=== PATIENT | female | born 1970 | race Hispanic/Latino ===

== ENCOUNTER 2017-03-27 20:23 | Emergency (ER) | payer MEDICARE ==
[2017-03-27] MEDS ORDERED: DEXAMETHASONE SOD PHOSPHATE 10MG/ML 1ML VIAL ONE (20:47)
[2017-03-27] MEDS ORDERED: KETOROLAC TROMETHAMINE 30MG/ML ONE (20:47)
[2017-03-27] MEDS ORDERED: SODIUM CHLORIDE 0.9% 1000ML 1,000 ML IV ONE (20:47)
== END 2017-03-27 21:42 | disposition home or self-care (01) ==
LOC: EDH 20:23
DX: J01.10 Acute frontal sinusitis, unspecified (principal); I10 Essential (primary) hypertension; E78.5 Hyperlipidemia, unspecified; F32.9 Major depressive disorder, single episode, unspecified; G35 Multiple sclerosis; Z98.51 Tubal ligation status; Z98.890 Other specified postprocedural states
CPT/HCPCS: 96361; 96374; 96375; 99284; J1100; J1885; J7030

== ENCOUNTER → 2018-04-07 | Outpatient (CLI) | payer MEDICARE ==
[~2018-04-07] MED LIST: GADODIAMIDE 10 MMOL/20 ML ML IV ONE
== END | disposition home or self-care (01) ==
LOC: RAH 12:29
PROVIDERS: ATTEND Family Medicine
DX: R42 Dizziness and giddiness (principal)
CPT/HCPCS: 70551; A9579

== ENCOUNTER → 2018-06-29 | Outpatient (CLI) | payer MEDICARE | END | disposition home or self-care (01) | LOC: RAH 15:06 | PROVIDERS: ATTEND Family Medicine | DX: M54.2 Cervicalgia (principal) | CPT/HCPCS: 72040 ==

== ENCOUNTER 2018-09-24 22:33 | Emergency (ER) | payer MEDICARE ==
[2018-09-24] MEDS ORDERED: TETANUS/DIPHTHERIA TOXOID [ADULT] 0.5 ML VIAL IM ONE (23:28)
== END 2018-09-25 00:09 | disposition home or self-care (01) ==
LOC: EDH 22:33
DX: S60.410A Abrasion of right index finger, initial encounter (principal); E78.5 Hyperlipidemia, unspecified; I10 Essential (primary) hypertension; F32.9 Major depressive disorder, single episode, unspecified; W55.01XA Bitten by cat, initial encounter; Y93.89 Activity, other specified; Y92.89 Other specified places as the place of occurrence of the external cause; Y99.8 Other external cause status
CPT/HCPCS: 90471; 90714

== ENCOUNTER → 2018-10-23 | Outpatient (CLI) | payer MEDICARE ==
[~2018-10-23] MED LIST changes: -GADODIAMIDE 10 MMOL/20 ML ML IV ONE; +IOHEXOL-350 75 ML VIAL IV ONE
== END | disposition home or self-care (01) ==
LOC: RAH 08:41
PROVIDERS: ATTEND Family Medicine
DX: K76.0 Fatty (change of) liver, not elsewhere classified (principal); K63.89 Other specified diseases of intestine; M47.815 Spondylosis without myelopathy or radiculopathy, thoracolumbar region
CPT/HCPCS: 74178; Q9967

== ENCOUNTER 2021-12-08 19:23 | Emergency (ER) | payer OTHER, MEDICARE ==
[~2021-12-08] VITALS: Ht 165.1 cm; Wt 89.4 kg
[2021-12-08] MEDS ORDERED: 0.9%NACL 1000ML 1,000 ML IV ONE ×2 (20:00→20:30)
[2021-12-08] MEDS ORDERED: KETOROLAC 15MG/ML VIAL (15MG/ML) ONE (20:17)
[2021-12-08] MEDS ORDERED: ONDANSETRON 4MG INJ ONE (20:17)
[2021-12-08] MEDS ORDERED: FAMOTIDINE 20MG VIAL IV ONE ×2 (20:18→20:30)
[2021-12-08] MEDS ORDERED: ACETAMINOPHEN 500 MG TABLET ONE (20:18)
[2021-12-08] MEDS ORDERED: ACETAMINOPHEN 500 MG TABLET PO ONE (20:30)
[2021-12-08] MEDS ORDERED: KETOROLAC 15MG/ML VIAL (15MG/ML) IV ONE (20:30)
[2021-12-08] MEDS ORDERED: ONDANSETRON 4MG INJ IVP ONE (20:30)
[2021-12-08 20:38] LABS: BASOPHILS % (AUTO) 0.3 % (0.0-5.0); EOSINOPHILS % (AUTO) 1.6 % (0.0-8.0); HEMATOCRIT 41.7 % (36-48); LYMPHOCYTES % (AUTO) 6.9 % (21.0-51.0); MEAN CORPUSCULAR HEMOGLOBIN 30.6 pg (27.0-33.0); MEAN CORPUSCULAR HGB CONC 34.3 g/dL (32.0-36.0); MEAN CORPUSCULAR VOLUME 89.1 fL (79-99); MONOCYTES % (AUTO) 5.3 % (3.0-13.0); NEUTROPHILS % (AUTO) 85.6 % (40.0-77.0); PLATELET COUNT (AUTO) 161 K/uL (130-400); RED BLOOD CELL COUNT(AUTO) 4.68 MIL/uL (4.00-5.50); RED CELL DISTRIBUTION WIDTH 12.6 % (11.0-15.5); WHITE BLOOD COUNT (AUTO) 9.8 K/uL (4.8-10.8)
[2021-12-08 20:44] LABS: APPEARANCE,URINE CLEAR (CLEAR); BILIRUBIN,URINE NEGATIVE (NEGATIVE); COLOR,URINE YELLOW (YELLOW); GLUCOSE, URINE (UA) NEGATIVE (NEGATIVE); KETONES,URINE NEGATIVE (NEGATIVE); LEUKOCYTE ESTERASE ,URINE NEGATIVE Leu/uL (NEGATIVE); NITRATE,URINE NEGATIVE (NEGATIVE); PROTEIN,URINE 30 mg/dL (NEGATIVE)
[2021-12-08 20:46] LABS: HCG,QUALITATIVE URINE NEGATIVE (NEGATIVE)
[2021-12-08 20:49] LABS: CARBON DIOXIDE 29 mmol/L (21-32); CHLORIDE 99 mmol/L (101-111); CREATININE 0.9 mg/dL (0.5-1.5); GLOMERULAR FILTR. RATE CALC 71 mL/min (>60); GLUCOSE,RANDOM 128 mg/dL (70-105); POTASSIUM 3.4 mmol/L (3.5-5.1); SODIUM SERUM 133 mmol/L (136-145); UREA NITROGEN, BLOOD 10 mg/dL (7-18)
[2021-12-08 20:57] LABS: BACTERIA,URINE RARE /HPF (None Seen); MUCUS,URINE RARE LPF (None Seen); SQUAMOUS EPITHELIAL CELL,UR FEW /HPF (0-2); WBC,URINE 0-1 /HPF (0-1)
[2021-12-08 20:59] LABS: ALANINE AMINOTRANSFERASE 39 U/L (12-78); ALBUMIN 4.2 g/dL (3.5-5.0); ASPARTATE AMINOTRANSFERASE 21 U/L (10-37)
[2021-12-08 21:00] LABS: INFLUENZA TYPE A NEGATIVE FOR TYPE A (NEG); INFLUENZA TYPE B NEGATIVE FOR TYPE B (NEG)
[2021-12-08 21:00] LABS: LIPASE < 50 U/L (114-286)
[2021-12-08] MEDS ORDERED: IOHEXOL 350 MG/ML 100ML INFUS..BTL IV ONE (21:49)
[2021-12-08] MEDS ORDERED: IBUP-2070 PO (22:45)
[2021-12-08] MEDS ORDERED: BACI1CAP6 PO (22:45)
[2021-12-08] MEDS ORDERED: ACET-66 PO (22:45)
[2021-12-08] MEDS ORDERED: DICY20TA2 PO (22:45)
[2021-12-08] MEDS ORDERED: ONDA4TAB10 PO (22:45)
[2021-12-08 23:12] VITALS: BP 135/72
== END 2021-12-08 23:14 | disposition home or self-care (01) ==
LOC: EDH 19:23
DX: B34.9 Viral infection, unspecified (principal); Z20.822 Contact with and (suspected) exposure to COVID-19; R11.2 Nausea with vomiting, unspecified; F41.9 Anxiety disorder, unspecified; F32.A Depression, unspecified; I10 Essential (primary) hypertension; G35 Multiple sclerosis; Z98.890 Other specified postprocedural states
CPT/HCPCS: 99285; 74177; 96374; 96361; 71045; 96375; 87635; 80053; 83690; 85025; 87040 ×2; 87880; 87804 ×2; 83605; 81001; 81025; 36415; C9803; J3490; J7030; J2405; J1885; Q9967

== ENCOUNTER → 2022-01-28 | Outpatient (CLI) | payer OTHER, MEDICARE ==
[~2022-01-28] MED LIST changes: +ACET-66 PO; +BACI1CAP6 PO; +DICY20TA2 PO; +IBUP-2070 PO; -IOHEXOL-350 75 ML VIAL IV ONE; +ONDA4TAB10 PO
== END | disposition home or self-care (01) ==
LOC: RAH 09:06
PROVIDERS: ATTEND Family Medicine
DX: Z12.31 Encounter for screening mammogram for malignant neoplasm of breast (principal)
CPT/HCPCS: 77067

== ENCOUNTER → 2022-04-07 | Outpatient (CLI) | payer OTHER, MEDICARE | END | disposition home or self-care (01) | LOC: RAH 13:18 | PROVIDERS: ATTEND Family Medicine | DX: N60.01 Solitary cyst of right breast (principal); N60.41 Mammary duct ectasia of right breast | CPT/HCPCS: 76641; 77065 ==

== ENCOUNTER → 2023-09-16 | Outpatient (CLI) | payer OTHER, MEDICARE ==
[~2023-09-16] MED LIST changes: +IOHEXOL 350 MG/ML 100ML INFUS..BTL IV ONE; +ONDA-243 PO; -ONDA4TAB10 PO
== END | disposition home or self-care (01) ==
LOC: RAH 07:37
PROVIDERS: ATTEND Internal Medicine Gastroenterology
DX: R19.7 Diarrhea, unspecified (principal); Z80.0 Family history of malignant neoplasm of digestive organs
CPT/HCPCS: 74175; Q9967

== ENCOUNTER → 2024-11-22 | Outpatient (CLI) | payer OTHER, MEDICARE ==
[~2024-11-22] MED LIST changes: +GADOTERATE MEGLUMINE 10 MMOL/20 ML VIAL IV ONE; +IBUP-1492 PO; -IBUP-2070 PO; +IBUP-2077 PO; -IOHEXOL 350 MG/ML 100ML INFUS..BTL IV ONE; +METH4TAB3 PO
--- NOTE | 2024-11-23 12:35 | HMCIMG ---
EXAMINATION: MR Abdomen with intravenous contrast with MRCP CLINICAL HISTORY: Patient with family history of neoplasm of the digestive tract. TECHNIQUE: Multisequence, multiplanar magnetic resonance images of the abdomen with intravenous contrast. CONTRAST: Administered intravenously. COMPARISON: CT angiogram abdomen dated September 16, 2023. FINDINGS: LOWER THORAX: No pleural effusion. LIVER: The liver is enlarged measuring 19 cm in craniocaudal span. No focal hepatic lesion. GALLBLADDER AND BILE DUCTS: No gallstone. No biliary ductal dilatation. PANCREAS: Unremarkable. No ductal dilation. SPLEEN: Unremarkable. ADRENALS: Unremarkable. KIDNEYS: No hydronephrosis or renal mass. STOMACH AND BOWEL: Limited evaluation shows no acute process. LYMPH NODES: No lymphadenopathy. VASCULATURE: No abdominal aortic aneurysm. IMPRESSION: Evaluation of the solid organs is limited due to lack of intravenous contrast. Additionally, please note that this study does not exclude small or large bowel cancer. Hepatomegaly with liver measuring 19 cm. No acute intra-abdominal abnormality. /[place]
== END | disposition home or self-care (01) ==
LOC: RAH 07:27
PROVIDERS: ATTEND Internal Medicine Gastroenterology
DX: R16.0 Hepatomegaly, not elsewhere classified (principal); Z80.0 Family history of malignant neoplasm of digestive organs
CPT/HCPCS: 74183; A9575

== ENCOUNTER 2024-11-27 11:59 | Emergency (ER) | payer OTHER, MEDICARE ==
[~2024-11-27] VITALS: Ht 165.1 cm; Wt 88.0 kg
[~2024-11-27 11:59] MED LIST changes: -GADOTERATE MEGLUMINE 10 MMOL/20 ML VIAL IV ONE; -METH4TAB3 PO
--- NOTE | 2024-11-27 12:03 | NUR ---
B/P 174/86, KRANTHI MENDOZA AWARE
--- NOTE | 2024-11-27 12:05 | ERN ---
ED Note History of Present Illness Stated Complaint: COUGH Chief Complaint: Congestion Time Seen by MD: 12:00 Dictation: PATIENT IS A 54-YEAR-OLD FEMALE COMING IN TODAY WITH COMPLAINTS OF FLU-LIKE SYMPTOMS TO INCLUDE CLEAR RHINITIS MILD SORE THROAT BODY ACHES WITH NAUSEA VO MITING AND DIARRHEA ONSET WAS YESTERDAY. SHE STATES SHE HAS HAD CHILLS. NO LOSS OF TASTE OR SMELL NO COUGH. SHE DENIES BEING A DIABETIC. LAST ANTIPYRETICS OVER THIS MORNING IBUPROFEN CURRENT TEMPERATURE 99.8. Allergies: Coded Allergies: No Known Drug Allergies (Unverified Allergy, Unknown, 09/25/18) Home Meds Active Scripts Ibuprofen (Ibuprofen 800 mg Tab) 800 Mg Tab, 800 MG PO Q8H PRN for fever or pain, #30 TAB 0 Refills Prov:KRANTHI VÁSQUEZ NP 02/15/24 Bacillus Coagulans (Probiotic) 1 Each Capsule.dr, 1 EACH PO DAILY, #30 CAP Prov:[facility] 12/08/21 Dicyclomine HCl (Bentyl) 20 Mg Tab, 20 MG PO TID PRN for ABDOMINAL PAIN, #15 TAB Prov:[facility] 12/08/21 Ondansetron (Ondansetron Odt) 4 Mg Tab.rapdis, 4 MG PO TID, #15 TAB Prov:[facility] 12/08/21 Acetaminophen (Tylenol) 500 Mg Tab, 500 MG PO Q4PRN, #30 TAB Prov:[facility] 12/08/21 Ibuprofen (Ibuprofen) 600 Mg Tablet, 600 MG PO Q6H PRN for PAIN, #15 TAB Prov:[facility] 12/08/21 Past Medical History Past Medical History: High Cholesterol, Hypertension Additional Past Medical Hx: MS Surgical History: History: Not Applicable RN Note Reviewed/Agreed w/PFSH: Yes Review of System Dictation CONSTITUTIONAL: NEGATIVE EXCEPT FOR HPI FEVER CHILLS HEAD/FACE: NEGATIVE EXCEPT FOR HPI EENT: NEGATIVE EXCEPT FOR HPI CLEAR RHINITIS WITH SORE THROAT RESPIRATORY: NEGATIVE EXCEPT FOR HPI GASTROINTESTINAL/ABDOMINAL: NEGATIVE EXCEPT FOR HPI NAUSEA VOMITING DIARRHEA GENITOURINARY: NEGATIVE EXCEPT FOR HPI MUSCULOSKELETAL: NEGATIVE EXCEPT FOR HPI MALAISE INTEGUMENTARY: NEGATIVE EXCEPT FOR HPI NEUROLOGICAL/PSYCH: NEGATIVE EXCEPT FOR HPI HEMATOLOGIC/LYMPHATIC: NEGATIVE EXCEPT FOR HPI ALL SYSTEMS NEGATIVE, EXCEPT NOTED ABOVE. 13 POINT REVIEW OF SYSTEMS ASSESSED AND ALL NEGATIVE EXCEPT FOR ABOVE. Initial Vital Sign VS Vital Signs Date Time Temp Pulse Resp B/P (MAP) Pulse Ox O2 Delivery O2 Flow Rate FiO2 11/27/24 12:00 99.9 98 18 174/86 98 Room Air 11/27/24 16:36 0 21 Physical Exam Dictation VITAL SIGNS REVIEWED GENERAL APPEARANCE: ALERT, ORIENTED X 3, MILD ACUTE DISTRESS, WELL DEVELOPED, NOURISHED. HEAD AND FACE: NON-TRAUMATIC. EYES: PERRL, PINK CONJUNCTIVAS, EYELID NO TRAUMA, ANTERIOR CHAMBER WITH ARCUS SENILIS. EARS: PINNAS INTACT AND NO SIGNS OF TRAUMA OR ERYTHEMA EAR CANALS CLEAR AND NO DISCHARGE TM NO ERYTHEMA NOSE: CLEAR DISCHARGE, NO BLEEDING. OROPHARYNX: MOUTH NORMAL, TONGUE PINK, PHARYNX CLEAR, MODERATE PHARYNGEAL ERYTHEMA, TONSILS NO EXUDATES, NO ABSCESSES NOTED, MUCOUS MEMBRANE MOIST UVULA MIDLINE, VOICE IS CLEAR NECK: SUPPLE, NON-TENDER, NO THYROMEGALY, NO MASSES, NO JVD, NO BRUITS BREAST:DEFERRED CHEST:NO TENDERNESS, NO CREPITUS, NO PARADOXICAL MOVEMENT, NO RETRACTIONS LUNGS:CLEAR, WELL-VENTILATED, SYMMETRIC, NO RALES, NO WHEEZING, NO RHONCHI, NO STRIDOR, GOOD BREATH SOUNDS BILATERALLY HEART: REGULAR RATE, REGULAR RHYTHM, NO MURMUR, NO GALLOPS VASCULAR: NO PERIPHERAL EDEMA, ABDOMEN: SOFT, POSITIVE BOWEL SOUNDS, NONDISTENDED, NO GUARDING, NONTENDER, NO REBOUND, NO MASSES NO HEPATOMEGALY, NO SPLENOMEGALY, NO WEINER'S SIGN, NO HERNIAS. NO FOCAL PAIN RECTAL: DEFERRED GENITAL: DEFERRED NEUROLOGICAL: NORMAL SPEECH, MOTOR FUNCTION INTACT, SENSORY FUNCTION INTACT MUSCULOSKELETAL: NECK NONTENDER, FULL RANGE OF MOTION, BACK NONTENDER, FULL RANGE OF MOTION, EXTREMITIES: NONTENDER, FULL RANGE OF MOTION SKIN: COLOR PINK, DRY, NO TURGOR, NO RASH, NO LACERATIONS, NO ABRASIONS, NO CONTUSIONS. LYMPHATIC: DEFERRED Results (Laboratory/Radiology) Laboratory/Radiology Laboratory Tests Test 11/27/24 12:05 11/27/24 16:03 11/27/24 16:17 Influenza Type A Antigen Negative For Type A Influenza Type B Antigen Negative For Type B SARS-CoV-2 Antigen (Rapid) PRESUMPTIVE NEGATIVE Group A Streptococcus Rapid negative (NEGATIVE) Urine Color YELLOW (YELLOW) Urine Appearance CLEAR (CLEAR) Urine pH 6.5 (5.0-8.0) Urine Specific [place] 1.024 (1.001-1.031) Urine Protein 20 mg/dL (NEGATIVE) H Urine Glucose (UA) NEGATIVE mg/dL (NEGATIVE) Urine Ketones 60 mg/dL (NEGATIVE) H Urine Occult Blood MODERATE (NEGATIVE) H Urine Nitrate NEGATIVE (NEGATIVE) Urine Bilirubin NEGATIVE mg/dL (NEGATIVE) Urine Urobilinogen 0.2 mg/dL (0.2-1.0) Urine Leukocyte Esterase NEGATIVE Iris/uL Urine RBC 11-25 /HPF (0-1) H Urine WBC 2-5 /HPF (0-1) H Urine Squamous Epithelial Cells RARE /HPF (0-2) Urine Bacteria RARE /HPF (None Seen) Urine Yeast RARE /HPF (None Seen) White Blood Count 7.8 K/uL (4.8-10.8) Red Blood Count 4.52 MIL/uL (4.00-5.50) Hemoglobin 13.7 g/dL (12.0-16.0) Hematocrit 40.7 % (36-48) Mean Corpuscular Volume 90.0 fL (79-99) Mean Corpuscular Hemoglobin 30.3 pg (27.0-33.0) Mean Corpuscular Hemoglobin Concent 33.7 g/dL (32.0-36.0) Red Cell Distribution Width 13.3 % (11.0-15.5) Platelet Count 177 K/uL (130-400) Mean Platelet Volume 11.3 fL (7.5-10.5) H Immature Granulocyte % (Auto) 0.3 % (0-1) Neutrophils (%) (Auto) 83.3 % (40.0-77.0) H Lymphocytes (%) (Auto) 11.8 % (21.0-51.0) L Monocytes (%) (Auto) 4.0 % (3.0-13.0) Eosinophils (%) (Auto) 0.3 % (0.0-8.0) Basophils (%) (Auto) 0.3 % (0.0-5.0) Neutrophils # (Auto) 6.5 K/uL (1.8-7.7) Lymphocytes # (Auto) 0.9 K/uL (1.0-4.8) L Monocytes # (Auto) 0.3 K/uL (0.1-1.0) Eosinophils # (Auto) 0.02 K/uL (0.00-0.70) Basophils # (Auto) 0.02 K/uL (0.00-0.20) Absolute Immature Granulocyte (auto 0.02 K/uL (0-1) Nucleated Red Blood Cells 0.0 % (0.0-0.19) Sodium Level 138 mmol/L (136-145) Potassium Level 3.5 mmol/L (3.5-5.1) Chloride Level 101 mmol/L (101-111) Carbon Dioxide Level 28 mmol/L (21-32) Blood Urea Nitrogen 8 mg/dL (7-18) Creatinine 0.7 mg/dL (0.5-1.0) Glomerular Filtration Rate Calc 104 mL/min (>90) Random Glucose 131 mg/dL (70-105) H Lactic Acid Level 1.5 mmol/L (0.8-2.5) Total Calcium 9.2 mg/dL (8.5-10.1) Troponin I High Sensitivity 6 ng/L (4-50) Labs Reviewed?: Yes EKG Comment: NORMAL SINUS RHYTHM/HEART RATE 88/AXIS NORMAL NO ECTOPY ED Course ED Course Orders Procedure Category Date Status Time Covid19 (Sars Antigen LAB 11/27/24 Complete Rapid) 12:03 Influenza Type A & B, LAB 11/27/24 Complete Rapid 12:03 Rapid (Group A Strep) LAB 11/27/24 Complete 12:03 Acetaminophen 500mg PHA 11/27/24 Complete Tab (Tylenol 500mg T 12:30 Ondansetron Odt 4mg PHA 11/27/24 Complete Tab (Zofran 4mg Odt) 12:30 Urinalysis Profile LAB 11/27/24 Complete 16:01 Blood Cult ANGEL 11/27/24 In Process 16:01 Lactic Acid LAB 11/27/24 Complete 16:01 Cbc With Differential LAB 11/27/24 Complete 16:01 Troponin I High LAB 11/27/24 Complete Sensitivity 16:01 12 Lead Ekg Tracing- EKG 11/27/24 Logged Technical 16:01 0.9%Nacl 1000ml (Ns PHA 11/27/24 Complete 1000ml) 16:30 Ketorolac PHA 11/27/24 Complete Tromethamine 30mg/Ml 16:30 Ondansetron 4mg Inj PHA 11/27/24 Complete (Zofran 4mg Inj) 16:30 Basic Metabolic Panel LAB 11/27/24 Complete 16:01 Current Medications Medications (Trade) Dose Ordered Sig/Temo Route PRN Reason Start Time Stop Time Status Last Admin Dose Admin Acetaminophen (TYLenol 500MG TAB) 1,000 mg ONCE ONCE PO 11/27/24 12:30 11/27/24 12:31 DC 11/27/24 16:02 Ketorolac Tromethamine (toRADol) 30 mg ONCE ONCE IVP 11/27/24 16:30 11/27/24 16:31 DC 11/27/24 16:29 Ondansetron HCl (zoFRAN 4MG INJ) 4 mg ONCE ONCE IVP 11/27/24 16:30 11/27/24 16:31 DC Ondansetron HCl (zoFRAN 4MG ODT) 4 mg ONCE ONCE SL 11/27/24 12:30 11/27/24 12:31 DC 11/27/24 16:01 Sodium Chloride 1,000 ml @ 0 mls/hr ONCE ONCE IV 11/27/24 16:30 11/27/24 16:31 DC 11/27/24 16:29 Vital Signs Date Time Temp Pulse Resp B/P (MAP) Pulse Ox O2 Delivery O2 Flow Rate FiO2 11/27/24 16:36 99.3 88 20 150/74 96 Room Air* 0 21 11/27/24 16:02 99.9 11/27/24 12:00 99.9 98 18 174/86 98 Room Air 1710/PATIENT STATES SHE FEELS MARKEDLY IMPROVED AFTER TREATMENT WITH FLUIDS ZOFRAN AND ONDANSETRON. WE WILL GIVE SOLU-MEDROL FOR COUGH AND HAVE HER FOLLOW UP WITH HEART Score Response (Comments) Value History: Low suspicion (0) 0 Age: 45-65yrs (+1) 1 Risk Factors: 1-2 risk factors (+1) 1 Initial Troponin: Normal limit (0) 0 Total 2 Medical Decision Making [facility] 1712/MDM: DIFFERENTIAL DIAGNOSIS: ACS/AMI/SEPSIS/ELECTROLYTE IMBALANCE/DEHYDRATION/UTI/SARS/INFLUENZA/STREP. RATIONALE: TESTS CONSIDERED AND ORDERED SECONDARY TO SHARED DECISION MAKING INCLUDE: EKG/LABS PREVIOUS OUTSIDE RECORDS REVIEWED: OLD ER VISITS. RISK OF COMPLICATION AND/OR MORBIDITY OR MORTALITY OF PATIENT MANAGEMENT: NONE MEDICATIONS-PER MEDICATION RECONCILIATION NEED FOR HOSPITALIZATION: PATIENT DOES NOT MEET CRITERIA FOR HOSPITALIZATION. NONE NEED FOR EMERGENCY MAJOR/MINOR SURGERY: NO THERE ARE NO SOCIAL CONCERNS WITH THIS PATIENT. PRESCRIPTION DRUG MANAGEMENT MEDROL/ZOFRAN/TESSALON PRESCRIPTIONS WILL INCLUDE SYMPTOMATIC CARE PATIENT'S PRIOR EXTERNAL MEDICAL RECORDS FROM OTHER ER VISITS WERE REVIEWED BY ME INDICATED. PRIOR TESTING AND RESULTS FROM PREVIOUS VISITS WERE REVIEWED. PRIOR TESTS WERE TAKEN INTO ACCOUNT WITH MEDICAL DECISION MAKING AND RESOURCE UTILIZATION, INDEPENDENT HISTORIAN/HISTORIANS WERE USED TO OBTAIN COMPLETE MEDICAL HISTORY. I INDEPENDENTLY INTERPRETED THE TEST THAT WERE PERFORMED, RESULTS WERE REVIEWED BY ME AND CONSIDERED FINDINGS ON RADIOLOGY IF ORDERED. MEDICAL MANAGEMENT AND EXAMINATION INTERPRETATION DISCUSSIONS WERE HAD BY ME WITH OTHER QUALIFIED HEALTHCARE PROFESSIONALS INDICATED FOR THE PATIENT'S CARE. DX & DISP Disposition: Discharge Departure Impression: Primary Impression: Acute viral syndrome Additional Impressions: Malaise, Sinus headache Condition: Stable Scripts Ondansetron (Ondansetron Odt) 4 Mg Tab.rapdis 4 MG PO Q6HPRN PRN for nausea, #16 TAB 0 Refills Prov: KRANTHI VÁSQUEZ SPECIAL EDUCATION SUPERINTENDENT 11/27/24 Methylprednisolone (Medrol) 4 Mg Tab.ds.pk 1 TAB PO AD for 6 Days, #21 TAB 0 Refills 6 on day 1 then reduce by one tablet daily until gone Prov: KRANTHI VÁSQUEZ SPECIAL EDUCATION SUPERINTENDENT 11/27/24 Additional Instructions: FOLLOW-UP WITH PRIMARY CARE PROVIDER IN 1 TO 2 DAYS. TAKE MEDICATIONS DIRECTED HERE IN THE EMERGENCY ROOM. OKAY TO CONTINUE HOME MEDICATIONS UNLESS OTHERWISE DISCUSSED DURING YOUR VISIT IN THE EMERGENCY ROOM TODAY. RETURN TO YOUR NEAREST EMERGENCY ROOM IF SYMPTOMS WORSEN OR IF THERE IS NO IMPROVEMENT. CALL 911 IF YOU NEED IMMEDIATE ASSISTANCE. TAKE TYLENOL OR MOTRIN OVE [id number] NEEDED AND IF NO CONTRAINDICATIONS ARE PRESENT. INCREASE ORAL HYDRATION. A WOUND CULTURE OR URINE CULTURE WAS ORDERED HERE IN THE EMERGENCY ROOM DEPARTMENT PLEASE FOLLOW-UP WITH PRIMARY CARE PROVIDER AND ADVISE THEM TO GET REPEAT PORTS FROM OUR FACILITY. IF YOU HAD ANY KALE WRAP/SPLINTS THAT WERE APPLIED HERE, PLEASE DO NOT REMOVE THEM UNTIL YOU SEE YOUR PRIMARY CARE OR SPECIALTY. TAKE MEDROL DOSEPAK DIRECTED UNTIL GONE. INCREASE YOUR FLUID INTAKE. SEE YOUR PRIMARY CARE DOCTOR FOR FOLLOW UP IN THE NEXT 1-2 DAYS. Referrals: NEGAR PINEDA DO (PCP) Time of Disposition: 17:14 I have reviewed the case, and I agree with, Diagnosis and Plan KRANTHI VÁSQUEZ NP Nov 27, 2024 12:05
[2024-11-27 12:35] LABS: RAPID GROUP A STREP negative (NEGATIVE)
[2024-11-27 12:36] LABS: COVID19 (SARS ANTIGEN RAPID) PRESUMPTIVE NEGATIVE (NEGATIVE); INFLUENZA TYPE A Negative For Type A (NEGATIVE); INFLUENZA TYPE B Negative For Type B (NEGATIVE)
[2024-11-27 16:02] VITALS: TEMP 99.9
[2024-11-27 16:13] LABS: APPEARANCE,URINE CLEAR (CLEAR); GLUCOSE, URINE (UA) NEGATIVE (NEGATIVE); LEUKOCYTE ESTERASE ,URINE NEGATIVE Leu/uL (NEGATIVE); NITRATE,URINE NEGATIVE (NEGATIVE); OCCULT BLOOD,URINE MODERATE (NEGATIVE)
[2024-11-27 16:15] LABS: ADD UA MICROSCOPIC YES
[2024-11-27 16:17] LABS: SQUAMOUS EPITHELIAL CELL,UR RARE /HPF (0-2); YEAST,URINE BUDDING RARE /HPF (None Seen)
[2024-11-27 16:25] LABS: IMMATURE GRANULOCYTE ABSOLUTE 0.02 K/uL (0-1); NUCLEATED RED BLOOD CELLS 0.0 % (0.0-0.19); PLATELET COUNT (AUTO) 177 K/uL (130-400); RED BLOOD CELL COUNT(AUTO) 4.52 MIL/uL (4.00-5.50); RED CELL DISTRIBUTION WIDTH 13.3 % (11.0-15.5); WHITE BLOOD COUNT (AUTO) 7.8 K/uL (4.8-10.8)
[2024-11-27] MEDS: 0.9%NACL 1000ML 1,000 ML IV ONE (16:29)
[2024-11-27 16:41] LABS: CREATININE 0.7 mg/dL (0.5-1.0); GLOMERULAR FILTR. RATE CALC 104.0 mL/min (>90); GLUCOSE,RANDOM 131.0 mg/dL (70-105); SODIUM SERUM 138.0 mmol/L (136-145); UREA NITROGEN, BLOOD 8.0 mg/dL (7-18)
[2024-11-27] MEDS ORDERED: ONDA-243 PO (17:15)
[2024-11-27] MEDS ORDERED: METH4TAB3 PO (17:15)
[2024-11-27 17:47] VITALS: BP 145/67; PULSE 90; RESP 18; TEMP 98.7; O2SAT 98
--- NOTE | 2024-11-27 18:29 | EKG ---
[facility] Test Date: 2024-11-27 Test Time: 16:06:49 Pat Name: KIKA WILEY Department: [facility] Room: Gender: F Human Ge[employer] Faculty Member: [id number] : 1970 Requested By: KRANTHI VÁSQUEZ Order Number: [id number] Reading MD: Les Cortez Measurements Intervals [place] Rate: 88 P: 58 MN: 176 QRS: 3 QRSD: 90 T: 37 QT: 354 QTc: 428 Interpretive Statements Sinus rhythm LVH with secondary repolarization abnormality No previous ECG available for comparison Electronically Signed On 11-28-2024 14:36:52 CDT by Les Cortez Please click the below link to view image of tracing.
== END 2024-11-27 17:52 | disposition home or self-care (01) ==
LOC: EDH 11:59
DX: B34.9 Viral infection, unspecified (principal); R53.81 Other malaise; R51.9 Headache, unspecified; E78.00 Pure hypercholesterolemia, unspecified; I10 Essential (primary) hypertension; Z79.899 Other long term (current) drug therapy; Z98.890 Other specified postprocedural states; Z20.822 Contact with and (suspected) exposure to COVID-19
CPT/HCPCS: 99284; 96374; 96361; 96375; 87426; 84484; 80048; 85025; 87040 ×2; 87880; 87804 ×2; 83605; 81001; 36415; 93005; J1100; J1885; J7030